=== PATIENT | female | born 1990 | race Caucasian/White ===

== ENCOUNTER 2017-09-26 11:09 | Outpatient (CLI) | payer OTHER ==
[2017-09-27 09:13] LABS: ESTRADIOL SERUM 37.3 pg/mL (.); FOLLICLE STIMULATING HORMONE 5.9 mIU/mL (.); LUTEINIZING HORMONE 14.4 mIU/mL (.)
== END 2017-09-26 21:22 | disposition home or self-care (01) ==
LOC: EEVIPCON 11:09 → MLB 11:09
DX: N91.2 Amenorrhea, unspecified (principal)
CPT/HCPCS: 36415; 82670; 83001; 83002; 84443

== ENCOUNTER 2017-10-02 10:38 | Outpatient (CLI) | payer OTHER ==
[2017-10-04 09:15] LABS: ESTRADIOL SERUM 50.7 pg/mL (.); FOLLICLE STIMULATING HORMONE 4.9 mIU/mL (.); LUTEINIZING HORMONE 14.6 mIU/mL (.)
== END 2017-10-02 20:22 | disposition home or self-care (01) ==
LOC: MLB 10:38
DX: N91.2 Amenorrhea, unspecified (principal)
CPT/HCPCS: 36415; 82670; 83001; 83002; 83525

== ENCOUNTER 2018-07-07 07:56 | Outpatient (CLI) | payer OTHER ==
[2018-07-07 08:27] LABS: BASOPHILS # (AUTO) 0.1 K/uL (0.00-0.22); BASOPHILS % (AUTO) 0.7 % (0.0-2.0); EOSINOPHILS # (AUTO) 0.2 K/uL (0-0.4); EOSINOPHILS % (AUTO) 1.8 % (0.0-4.0); HEMATOCRIT 47.6 % (36-48); LYMPHOCYTES # (AUTO) 2.3 K/uL (2.5-16.5); LYMPHOCYTES % (AUTO) 26.1 % (20.5-51.1); MEAN CORPUSCULAR HEMOGLOBIN 28 pg (27-31); MEAN CORPUSCULAR HGB CONC 34 g/dL (33-37); MEAN CORPUSCULAR VOLUME 83.7 fL (80-94); MONOCYTES # (AUTO) 0.5 K/uL (0.8-1.0); MONOCYTES % (AUTO) 5.3 % (1.7-9.3); NEUTROPHILS # (AUTO) 5.8 K/uL (1.8-7.7); NEUTROPHILS % (AUTO) 66.1 % (42.2-75.2); PLATELET COUNT (AUTO) 271 K/uL (140-450); RED BLOOD CELL COUNT(AUTO) 5.68 MIL/uL (4.20-5.40); RED CELL DISTRIBUTION WIDTH 12.9 % (11.6-13.7); WHITE BLOOD COUNT (AUTO) 8.8 K/uL (4.8-10.8)
[2018-07-07 09:38] LABS: ALBUMIN 4.1 g/dL (3.4-5.0); ANION GAP 13.2 (8-16); CARBON DIOXIDE 26.7 mmol/L (21-32); CREATININE 0.7 mg/dL (0.6-1.3); POTASSIUM 3.9 mmol/L (3.5-5.1); THYROID STIMULATING HORMONE 0.61 uIU/mL (0.34-3.74); TOTAL BILIRUBIN 0.3 mg/dL (0.0-1.0)
== END 2018-07-07 20:14 | disposition home or self-care (01) ==
LOC: MLB 07:56
DX: H81.13 Benign paroxysmal vertigo, bilateral (principal); J30.9 Allergic rhinitis, unspecified
CPT/HCPCS: 36415; 80053; 83036; 84443; 85025

== ENCOUNTER 2018-07-31 06:05 | Emergency (ER) | payer OTHER ==
[~2018-07-31] VITALS: Ht 167.6 cm; Wt 78.5 kg
[2018-07-31 06:07] VITALS: BP 127/73
--- NOTE | 2018-07-31 06:07 | NUR ---
TO BED # 09 AMBULATORY
--- NOTE | 2018-07-31 06:10 | NUR ---
27/F PRESENTS SELF TO ED, C/O INTERMITTENT DIZZINESS, X3 WEEKS. REPORTS INTERMITTENT HEADACHES. PT STATED THAT SHE WAS PREVIOUSLY SEEN HERE 2 WEEKS AGO FOR DIZZINESS, HAD CT HEAD NEGATIVE, FINISHED RX MECLIZINE WITH RELIEF. PT NOTICED A LUMP ON R SIDE OF NECK YESTERDAY. AOX4, GCS 15, PERRLA, SKIN NORMAL DRY AND INTACT, RR EVEN AND UNLABORED. DENIES MED HX, RX OR OTC.
--- NOTE | 2018-07-31 07:19 | NUR ---
Pt report given to DENISSE CHRISTY. Transfer of care at this time.
--- NOTE | 2018-07-31 07:20 | NUR ---
PT SITTING IN BED ON THE PHONE. INTRODUCED MYSELF. PT STATED SHE IS WAITING FOR lab work results, then she can go home.
[2018-07-31 07:40] VITALS: BP 127/73
--- NOTE | 2018-07-31 07:40 | NUR ---
Patient discharged with v/s stable. Written and verbal after care instructions given and explained. Patient verbalized understanding. Ambulatory with steady gait. All questions addressed prior to discharge. Advised to follow up with PMD.
== END 2018-07-31 07:40 | disposition home or self-care (01) ==
LOC: MED 06:05
DX: R22.1 Localized swelling, mass and lump, neck (principal); R42 Dizziness and giddiness; G43.909 Migraine, unspecified, not intractable, without status migrainosus
CPT/HCPCS: 36415; 70360; 84443; 99284

== ENCOUNTER 2018-09-14 15:51 | Outpatient (CLI) | payer OTHER | END 2018-09-14 21:43 | disposition home or self-care (01) | LOC: MRD 15:51 | DX: E04.2 Nontoxic multinodular goiter (principal) | CPT/HCPCS: 76536; Q0092 ==

== ENCOUNTER 2018-10-21 15:43 | Outpatient (CLI) | payer OTHER ==
[2018-10-22 06:17] LABS: THYROID PEROXIDASE (TPO) AB 33 IU/mL (0-34)
== END 2018-10-21 16:00 | disposition home or self-care (01) ==
LOC: MLB 15:43
DX: E04.2 Nontoxic multinodular goiter (principal)
CPT/HCPCS: 36415; 84432; 84443; 86376; 86800

== ENCOUNTER 2019-06-09 12:39 | Emergency (ER) | payer OTHER ==
[~2019-06-09] VITALS: Ht 167.6 cm; Wt 65.8 kg
[2019-06-09 12:57] VITALS: BP 124/73
--- NOTE | 2019-06-09 13:05 | NUR ---
28/F TO ED FOR COLD S/S. REPORTS COUGH, CONGESTION X 1 WEEK. NO DISTRESS NOTED. IN CHAIR FOR MSE.
[2019-06-09 14:08] VITALS: BP 124/73
--- NOTE | 2019-06-09 14:08 | NUR ---
Patient discharged with v/s stable. Written and verbal after care instructions given and explained. Patient alert, oriented and verbalized understanding of instructions. Ambulatory with steady gait. All questions addressed prior to discharge. ID band removed. Patient advised to follow up with PMD. Rx of MOTRIN, PROMETHAZINE given. Patient educated on indication of medication including possible reaction and side effects. Opportunity to ask questions provided and answered.
== END 2019-06-09 14:08 | disposition home or self-care (01) ==
LOC: MED 12:39
DX: B34.9 Viral infection, unspecified (principal)
CPT/HCPCS: 99283